=== PATIENT | female | born 1985 | race Caucasian/White ===

== ENCOUNTER 2017-11-07 19:14 | Observation (INO) ==
[2017-11-07 19:58] LABS: Bilirubin,Urine Negative (Negative); Blood,Urine Negative (Negative); Clarity,Urine Clear (Clear); Color,Urine Yellow (Yellow); Glucose,Urine (UA) Normal (Normal); Ketones,Urine Negative (Negative); Leukocyte Esterase,Urine Negative (Negative); Nitrite,Urine Negative (Negative); PH,Urine 7.5 pH Units (5.0-8.0); Protein,Urine Negative (Neg-Trace); Specific Gravity,Urine 1.008 (1.010-1.025); Urobilinogen,Urine Normal (Normal)
[2017-11-07 20:20] LABS: Amphetamine Screen,Urine Negative ng/mL (Cutoff=1000); Barbiturate Screen,Urine Negative ng/mL (Cutoff=200); Benzodiazepines Screen,Urine Negative ng/mL (Cutoff=200); Cannabinoid Screen,Urine Negative ng/mL (Cutoff = 50); Cocaine Screen,Urine Negative ng/mL (Cutoff= 300); Opiate Screen,Urine Negative ng/mL (Cutoff=300); Phencyclidine Screen,Urine Negative ng/mL (Cutoff=25)
--- NOTE | 2017-11-07 21:47 | OB/GYN Progress Note ---
Date of Encounter: 11/07/17 Time of Encounter: 21:46 - Assessment and Plan (1) 31 weeks gestation of Current Visit: Yes Status: Acute (2) Low back pain during in third trimester Current Visit: Yes Status: Acute Negative UA, cervix closed, patient describes back pains shooting down legs similar to sciatica, discussed comfort measures such as belly band, Tylenol. Discharged home with labor and when to return to triage precautions. Patient verbalizes understanding Subjective - Subjective Interval history: 31+1 weeks gestation presents to triage with complaints of lower back and hip pain, pelvic pressure, suprapubic pressure. Patient states pain has been going on for a few days now, increasing in intensity today with sharp vaginal pain. Reports good movement, denies vaginal bleeding or leaking of fluid Antepartum ROS: movement normal, no loss of fluid, no vaginal bleeding, no contractions Objective - Exam FHR: auscultation normal FHR comments: Baseline 130 Auscultation: bilateral: normal Abdomen: Present: soft, gravid Cervical dilation: Closed-Fingertip/long/high Comments: Negative CVA tenderness - Labs Labs: Abnormal lab results Ur Specific [place] 1.008 (1.010-1.025) L 11/07/17 19:45
== END 2017-11-07 22:08 | disposition home or self-care (01) ==
LOC: 1NENULAB
PROVIDERS: ADMIT Advanced Practice Midwife; ATTEND Advanced Practice Midwife

== ENCOUNTER 2017-12-07 17:49 | Observation (INO) ==
[2017-12-07 18:41] LABS: Bilirubin,Urine Negative (Negative); Blood,Urine Negative (Negative); Clarity,Urine Clear (Clear); Color,Urine Yellow (Yellow); Glucose,Urine (UA) Normal (Normal); Ketones,Urine Negative (Negative); Leukocyte Esterase,Urine Trace (Negative); Nitrite,Urine Negative (Negative); Protein,Urine Negative (Neg-Trace); Specific Gravity,Urine 1.011 (1.010-1.025); Urobilinogen,Urine Normal (Normal)
[2017-12-07 18:43] LABS: Bacteria,Urine None Seen per hpf (None-Few); Hyaline Casts,Urine None Seen per lpf (None-Few); RBC,Urine 0-3 per hpf (0-3); Squamous Epithelial Cell,Urine Few per lpf (None-Few); WBC,Urine 0-3 per hpf (0-3)
--- NOTE | 2017-12-07 19:13 | OB/GYN Progress Note ---
Date of Encounter: 12/07/17 Time of Encounter: 19:09 - Assessment and Plan (1) 35 weeks gestation of Current Visit: Yes Status: Acute Normal vaginal exam NST reactive Urine - NSF Discharge home with labor precautions Follow up in the office as scheduled and prn (2) NST (non-stress test) reactive Current Visit: Yes Status: Acute (3) Vaginal yeast infection Current Visit: Yes Status: Acute Discharged home with Rx Yeast adhered to vaginal ryder on SSE - no other abnormalities seen. Subjective - Subjective Principal diagnosis: Something coming out of my vagina after bowel movement Interval history: Ms Sierra is a at 35 weeks and 3 days that presents to the triage with c/o something coming out of her posterior vagina. She states positive movement. She states the protrusion occurred after straining with a bowel movement around 4pm. She denies any previous labors. She denies regular cramping and contractions. She denies headaches, vision changes, epigastric pain, leaking of fluid, and vaginal bleeding. Antepartum ROS: new complaints, movement normal Objective - Vital Signs Vital Signs: Intake and Output 12/07/17 12/07/17 12/07/17 07:59 15:59 23:59 Other: Weight 66 kg Patient Weight 12/07/17 23:59 Weight 66 kg - Exam FHR: auscultation normal, category 1 FHR comments: 140 category I. No contractions per monitor Auscultation: bilateral: normal Abdomen: Present: normal appearance, soft, gravid Uterus: Present: normal. Absent: firm, tenderness Cervical dilation: 1.5 Cervix effacement: 75 station: -1 - Labs Labs: Abnormal lab results Ur Leukocyte Esterase Trace (Negative) H 12/07/17 18:24 Ur Culture Indicated? YES (NO) A 12/07/17 18:24
[2017-12-07 19:58] LABS: Amphetamine Screen,Urine Negative ng/mL (Cutoff=1000); Barbiturate Screen,Urine Negative ng/mL (Cutoff=200); Benzodiazepines Screen,Urine Negative ng/mL (Cutoff=200); Cannabinoid Screen,Urine Negative ng/mL (Cutoff = 50); Cocaine Screen,Urine Negative ng/mL (Cutoff= 300); Opiate Screen,Urine Negative ng/mL (Cutoff=300); Phencyclidine Screen,Urine Negative ng/mL (Cutoff=25)
== END 2017-12-07 19:40 | disposition home or self-care (01) ==
LOC: 1NENULAB
PROVIDERS: ADMIT Advanced Practice Midwife; ATTEND Advanced Practice Midwife

== ENCOUNTER → 2017-12-20 00:33 | Observation (INO) ==
[2017-12-19 23:37] LABS: Amphetamine Screen,Urine Negative ng/mL (Cutoff=1000); Barbiturate Screen,Urine Negative ng/mL (Cutoff=200); Benzodiazepines Screen,Urine Negative ng/mL (Cutoff=200); Cannabinoid Screen,Urine Negative ng/mL (Cutoff = 50); Cocaine Screen,Urine Negative ng/mL (Cutoff= 300); Opiate Screen,Urine Negative ng/mL (Cutoff=300); Phencyclidine Screen,Urine Negative ng/mL (Cutoff=25)
--- NOTE | 2017-12-20 00:20 | OB/GYN Progress Note ---
Date of Encounter: 12/20/17 Time of Encounter: 00:16 - Assessment and Plan (1) 37 weeks gestation of Current Visit: Yes Status: Acute Assessed by nurses and results relayed to CNM Cervical exam no change Vaginosis panel pending Discharge home with labor precautions Will follow up with patient in AM with vaginosis panel results Follow up in office with routine care and PRN. (2) NST (non-stress test) reactive Current Visit: Yes Status: Acute Subjective - Subjective Principal diagnosis: vaginal discharge and irregular ctx Interval history: Assessed for labor by nurses. Antepartum ROS: new complaints, movement normal, contractions Objective - Exam FHR: auscultation normal, category 1 FHR comments: 135 baseline category I tracing Cervical dilation: 2 and posterior per RN exam
[2017-12-20 00:51] LABS: Candida DNA Not Detected (Not Detect); Gardnerella DNA Not Detected (Not Detect); Trichomonas DNA Not Detected (Not Detect)
== END | disposition home or self-care (01) ==
LOC: 1NENULAB
PROVIDERS: ADMIT Advanced Practice Midwife; ATTEND Advanced Practice Midwife

== ENCOUNTER 2018-01-01 10:00 | Inpatient (IN) ==
[2018-01-01] MEDS ORDERED: Ondansetron 4 MG/2 ML VIAL IVP PRN (10:23)
[2018-01-01] MEDS ORDERED: Famotidine 20 MG/2 ML VIAL IVP PRN (10:23)
[2018-01-01] MEDS ORDERED: Metoclopramide 10 MG/2 ML VIAL IVP PRN (10:23)
[2018-01-01] MEDS ORDERED: *HR* Nalbuphine 10 MG/ML AMPUL IVP PRN (10:23)
[2018-01-01] MEDS ORDERED: Naloxone 0.4 MG/ML INJ IVP PRN (10:23)
[2018-01-01] MEDS ORDERED: Ringers Solution, Lactated 1,000 ML IVC SCH (10:30)
[2018-01-01] MEDS ORDERED: Oxytocin 20 units/ LR 1000 mL 20 UNIT/1,000 ML BAG IVC SCH ×2 (10:30→20:07)
[2018-01-01 11:14] LABS: Basophils % 0.4 %; Eosinophils # 0.1 K/mcL (0.0-0.6); Hematocrit 30.9 % (35.3-44.9); Hemoglobin 10.2 g/dL (11.5-15.4); Immature Granulocytes % 1.2 % (0-4); Lymphocytes # 1.8 K/mcL (0.6-4.6); Lymphocytes % 19.3 %; Mean Corpuscular Hemoglobin 33.1 pg (28.0-33.3); Mean Corpuscular Volume 100.3 fL (83.0-100.0); Mean Platelet Volume 10.8 fL (9.4-12.4); Monocytes # 0.8 K/mcL (0.0-1.3); Neutrophils # 6.6 K/mcL (1.6-8.9); Platelet Count 221 K/mcL (140-400); Red Blood Count 3.08 M/mcL (3.82-4.97); Red Cell Distribution Width 13.7 % (11.5-14.5); Segmented Neutrophils % 70.1 %
[2018-01-01] MEDS ORDERED: Loratadine 10 MG TABLET PO ONE (11:23)
[2018-01-01 11:55] LABS: Amphetamine Screen,Urine Negative ng/mL (Cutoff=1000); Barbiturate Screen,Urine Negative ng/mL (Cutoff=200); Benzodiazepines Screen,Urine Negative ng/mL (Cutoff=200); Cannabinoid Screen,Urine Negative ng/mL (Cutoff = 50); Cocaine Screen,Urine Negative ng/mL (Cutoff= 300); Opiate Screen,Urine Negative ng/mL (Cutoff=300); Phencyclidine Screen,Urine Negative ng/mL (Cutoff=25)
[2018-01-01] MEDS ORDERED: Epidural Premix (fent/bupiv) 110 ML EP ONE (13:22)
--- NOTE | 2018-01-01 16:10 | OB/GYN History & Physical ---
Date of Encounter: 01/01/18 Time of Encounter: 16:08 Assessment and Plan (1) 39 weeks gestation of Current visit: Yes Status: Acute (2) Elective induction of labor planned Current visit: Yes Status: Acute Planned pitocin induction. Patient with history of infant and is very anxious and would prefer to be delivered at term History of Present Illness Chief complaint: induciton of labor at term HPI: Ms. Sierra is a 32 year old female G 6 P 3-0-2-2 at 39 0/7 weeks admitted for induction of labor at term with favorable cervix. She denies any regular contractions, leaking fluid, or vaginal bleeding. She reports good movement. Her has been uncomplicated. She does have a history of an infant at 2 months of age. Past Med Surg Social Fam HX - Past Medical History Source: patient Medical history: non-contributory (seasonal allergies) Additional medical history: irregular heart rate with PVC's. seasonal allergies Psychiatric history: anxiety, depression - Past Surgical History Surgical History: other Additional surgical history: D&C in 2017 - Social History Smoking Status: Never smoker Smokeless Tobacco Status: No Alcohol use: none Drug use: none - Family History Mother Name: Keyona Living Status: Still Living Hx Family GI Disorders: Yes (crohns) Obstetrical History - Pregnancies : 6 Para: 3 Term: 3 : 0 Ab's: 2 Livin Medications and Allergies Buspar 7.5 mg PO BID 10/28/17 [History] Tablet 1 tab PO DAILY 10/28/17 [History] Ferrous Sulfate 1 tab PO DAILY 11/07/17 [History] Folic Acid 1 tab PO DAILY 11/07/17 [History] Zyrtec 10 mg PO DAILY 12/07/17 [History] 3 Allergy/AdvReac Type Severity Reaction Status Date / Time terconazole [From Terazol 3] AdvReac See Verified 12/19/17 23:30 Comments venlafaxine [From Effexor] AdvReac Anxiety Verified 11/07/17 19:34 Review of System OB All systems PM: reviewed and no additional remarkable complaints except as stated Exam - Constitutional Constitutional: well developed, well nourished, no acute distress, average body habitus - HEENT HEENT: EOMI - Lungs Respiratory exam: CTAB - Cardiovascular Cardiovascular exam: RRR - Abdomen Abdomen: Present: bowel sounds normal, gravid, non tender - Vulva Vulva: bilateral: normal - Vagina Vagina: Present: normal moisture - Cervix Dilation: 4 Effacement: 80 Station: -3 - Comments Comments: AROM with clear fluid. Continue with EFM. Currently category 1 FHR tracing. Contractions q 2 minutes Results Result Diagrams: 01/01/18 10:24 Abnormal lab results RBC 3.08 M/mcL (3.82-4.97) L 01/01/18 10:24 Hgb 10.2 g/dL (11.5-15.4) L 01/01/18 10:24 Hct 30.9 % (35.3-44.9) L 01/01/18 10:24 MCV 100.3 fL (83.0-100.0) H 01/01/18 10:24 All other labs normal. - VTE Reasons for not Prescribing Prophylaxis: Treatment not Indicated - Low risk for VTE
--- NOTE | 2018-01-01 19:41 | OB/GYN Procedure Note ---
Delivery - Delivery Date: 01/01/18 Provider: Nadege Osborn Intrapartum events: none Delivery induction: AROM, oxytocin Delivery monitor: external FHT, external uterine Anesthesia: none Quantitated Blood Loss: 200 - (s) Infant A Delivery Date: 01/01/18 Delivery Time: 19:22 Presentation: vertex Route of delivery: Gender: Male Viability: Viable Pounds: 6 Ounces: 13 Weight Gram: 3.105 kg at 1 minute: 8 at 5 mins: 9 Shoulder Dystocia: not encountered Placenta: spontaneous - Repair Laceration Description: Perineal - 1st Degree - Complications Delivery complications: none Delivery comments: Called to room with patient complete and +2 station. Under maternal effort she delivered a viable male weighing 6 lbs. 13 oz. and Apgars 8 and 9 at one and 5 minutes respectively do delivered over an intact perineum. Following delivery of the head the infant had no nuchal cord or shoulder dystocia encountered. The 's body was delivered with maternal effort and placed on mom's abdomen. She had a anteriorly the laceration was hemostatic without repair as well as posterior perineal laceration very superficial and hemostatic. Cord was clamped and cut with assistance from the father. Placenta delivered spontaneously, complete, and intact with a three-vessel cord. Mother and recovering in LDR in stable condition - Disposition Mom disposition: stable in LDR [place] disposition: stable in LDR
[2018-01-01] MEDS ORDERED: Oxytocin 20 units/ LR 1000 mL 20 UNIT/1,000 ML BAG IVC ONE (20:07)
[2018-01-01] MEDS: Ibuprofen 600 MG TABLET PO PRN (20:20)
[2018-01-01] MEDS: Acetaminophen 325 MG TABLET PO PRN (23:02)
[2018-01-02] MEDS: Ibuprofen 600 MG TABLET PO PRN ×3 (03:24→22:18)
[2018-01-02] MEDS ORDERED: Ondansetron 4 MG/2 ML VIAL IVP ONE (04:16)
[2018-01-02 04:56] LABS: Basophils # 0.1 K/mcL (0.0-0.2); Basophils % 0.4 %; Eosinophils # 0.1 K/mcL (0.0-0.6); Eosinophils % 0.6 %; Hematocrit 27.6 % (35.3-44.9); Hemoglobin 9.1 g/dL (11.5-15.4); Immature Granulocytes % 0.9 % (0-4); Lymphocytes # 2.5 K/mcL (0.6-4.6); Lymphocytes % 18.1 %; Mean Corpuscular Hemoglobin 34.1 pg (28.0-33.3); Mean Corpuscular Volume 103.4 fL (83.0-100.0); Mean Platelet Volume 10.4 fL (9.4-12.4); Monocytes # 1.2 K/mcL (0.0-1.3); Monocytes % 8.8 %; Neutrophils # 9.6 K/mcL (1.6-8.9); Platelet Count 199 K/mcL (140-400); Red Blood Count 2.67 M/mcL (3.82-4.97); Red Cell Distribution Width 13.6 % (11.5-14.5); Segmented Neutrophils % 71.2 %
[2018-01-02] MEDS: Acetaminophen 325 MG TABLET PO PRN ×2 (06:41→23:40)
[2018-01-02] MEDS: Loratadine 10 MG TABLET PO SCH (08:17)
[2018-01-02] MEDS: Prenatal Vit/FA 1 EACH TABLET PO SCH (08:18)
--- NOTE | 2018-01-02 10:16 | OB/GYN Progress Note ---
Date of Encounter: 01/02/18 Time of Encounter: 10:14 - Assessment and Plan (1) Vaginal delivery Current Visit: Yes Status: Acute Stable PPD#1 Continue current management plan Anticipate discharge tomorrow. Subjective - Subjective Patient reports: appetite normal, voiding normally, pain well controlled, ambulating normally : doing well Objective - Latest Vital Signs Latest vital signs: Vital Signs Temp Pulse Resp BP Pulse Ox 01/02/18 07:50 97.8 F 66 14 109/64 100 01/02/18 06:00 98.1 F 67 16 102/65 98 01/01/18 23:45 98.0 F 64 14 106/58 99 01/01/18 22:45 98.1 F 68 16 112/68 100 01/01/18 21:45 98.1 F 66 16 105/63 99 Intake and Output 01/01/18 01/02/18 01/02/18 23:59 07:59 15:59 Intake Total 800 / 800 Output Total 175 / 175 800 / 800 Balance -175 / -175 0 / 0 Intake: Oral 800 / 800 Output: Urine 175 / 175 800 / 800 Other: Weight 60 kg Patient Weight 01/02/18 23:59 Weight 60 kg - Exam Lungs: bilateral: normal Chest: Normal S1, Normal S2 Extremities: Present: normal Abdomen: Present: normal appearance, soft, gravid Uterus: Present: firm Uterus Position: 2 Fingers Below Umbilicus - Labs Labs: Laboratory Results - last 24 hr 01/01/18 01/01/18 01/02/18 10:23 10:24 04:39 WBC 9.4 13.5 H RBC 3.08 L 2.67 L Hgb 10.2 L 9.1 L Hct 30.9 L 27.6 L MCV 100.3 H 103.4 H MCH 33.1 34.1 H MCHC 33.0 33.0 RDW 13.7 13.6 Plt Count 221 199 MPV 10.8 10.4 Immature Gran % 1.2 0.9 Seg Neutrophils % 70.1 71.2 Lymphocytes % 19.3 18.1 Monocytes % 8.0 8.8 Eosinophils % 1.0 0.6 Basophils % 0.4 0.4 Neutrophils # 6.6 9.6 H Lymphocytes # 1.8 2.5 Monocytes # 0.8 1.2 Eosinophils # 0.1 0.1 Basophils # 0.0 0.1 Urine Opiates Screen Negative Ur Barbiturates Screen Negative Ur Phencyclidine Scrn Negative Ur Amphetamines Screen Negative U Benzodiazepines Scrn Negative Urine Cocaine Screen Negative U Marijuana (THC) Screen Negative Ur Drug Screen Interp See Below
[2018-01-03] MEDS: Ibuprofen 600 MG TABLET PO PRN (05:49)
[2018-01-03] MEDS: Prenatal Vit/FA 1 EACH TABLET PO SCH (07:31)
[2018-01-03] MEDS: Loratadine 10 MG TABLET PO SCH (07:32)
[2018-01-03 07:37] VITALS: BP 116/78
--- NOTE | 2018-01-03 10:31 | Discharge Summary ---
Date of Encounter: 01/03/18 Time of Encounter: 10:29 - Discharge Diagnosis (1) Status post vaginal delivery Priority: Primary Status: Acute Comments: 32 yo on PPD#2 following a of a baby boy at 39w1d. Meeting PP milestones, reports good mood. Reports is going well. H/o of anxiety & depression; aware of s/sx f PP depression. Established with a counselor that she plans to follow up with PP. Declines control at this time. Plan for discharge today. - Discharge Medications Prescriptions: Ibuprofen [Motrin] 600 mg PO Q6HR PRN #30 tablet PRN Reason: Cramping Docusate [Colace] 100 mg PO BID #30 capsule Home Medications: Buspar 7.5 mg PO BID 10/28/17 [History] Tablet 1 tab PO DAILY 10/28/17 [History] Zyrtec 10 mg PO DAILY 12/07/17 [History] Docusate [Colace] 100 mg PO BID #30 capsule 01/03/18 [Rx] Ibuprofen [Motrin] 600 mg PO Q6HR PRN #30 tablet 01/03/18 [Rx] Allergies/Adverse Reactions: 3 Allergy/AdvReac Type Severity Reaction Status Date / Time terconazole [From Terazol 3] AdvReac See Verified 12/19/17 23:30 Comments venlafaxine [From Effexor] AdvReac Anxiety Verified 11/07/17 19:34 Data Procedures and tests throughout hospitalization: Laboratory Tests 01/01/18 01/01/18 01/02/18 10:23 10:24 04:39 WBC 9.4 13.5 H RBC 3.08 L 2.67 L Hgb 10.2 L 9.1 L Hct 30.9 L 27.6 L MCV 100.3 H 103.4 H MCH 33.1 34.1 H MCHC 33.0 33.0 RDW 13.7 13.6 Plt Count 221 199 MPV 10.8 10.4 Immature Gran % 1.2 0.9 Seg Neutrophils % 70.1 71.2 Lymphocytes % 19.3 18.1 Monocytes % 8.0 8.8 Eosinophils % 1.0 0.6 Basophils % 0.4 0.4 Neutrophils # 6.6 9.6 H Lymphocytes # 1.8 2.5 Monocytes # 0.8 1.2 Eosinophils # 0.1 0.1 Basophils # 0.0 0.1 Urine Opiates Screen Negative Ur Barbiturates Screen Negative Ur Phencyclidine Scrn Negative Ur Amphetamines Screen Negative U Benzodiazepines Scrn Negative Urine Cocaine Screen Negative U Marijuana (THC) Screen Negative Ur Drug Screen Interp See Below Date of admission: 01/01/18 10:09 Primary care physician: Kyle Armstrong MD Consults: 01/01/18 20:07 Consult to Construction Equipment [employer] Helper [CONS] Routine Comment: Vaginal delivery, consult needed Discharging clinician: Sophie Hartmann Anticipated date of discharge: 01/03/18 - Patient Status Disposition: Home, Self-Care Condition: Good Functional capacity at discharge: independent ambulation Overall status at discharge: patient is progressing back to baseline - Discharge Instructions Follow Up With: Kyle Armstrong MD [Primary Care Provider] - Nadege Osborn DO [Partnered Physician] - - Diet and Activity Activity: increase activity as tolerated Diet: advance to your usual diet Hospital Course Reason for admission: induction of labor, IUP at term Delivery: Episiotomy: none Laceration: 1st degree Other procedures: none complications: none Discharge diagnosis: IUP at term delivered baby: male Hospital course: - Delivery Date: 01/01/18 Provider: Nadege Osborn Intrapartum events: none Delivery induction: AROM, oxytocin Delivery monitor: external FHT, external uterine Anesthesia: none Quantitated Blood Loss: 200 - (s) A Delivery Date: 01/01/18 Infant Delivery Time: 19:22 Presentation: vertex Route of delivery: Gender: Male Viability: Viable Pounds: 6 Ounces: 13 Weight Gram: 3.105 kg at 1 minute: 8 at 5 mins: 9 Shoulder Dystocia: not encountered Placenta: spontaneous - Repair Laceration Description: Perineal - 1st Degree - Complications Delivery complications: none Delivery comments: Called to room with patient complete and +2 station. Under maternal effort she delivered a viable male weighing 6 lbs. 13 oz. and Apgars 8 and 9 at one and 5 minutes respectively do delivered over an intact perineum. Following delivery of the head the had no nuchal cord or shoulder dystocia encountered. The infant's body was delivered with maternal effort and placed on mom's abdomen. She had a anteriorly the laceration was hemostatic without repair as well as posterior perineal laceration very superficial and hemostatic. Cord was clamped and cut with assistance from the father. Placenta delivered spontaneously, complete, and intact with a three-vessel cord. Mother and infant recovering in LDR in stable condition - Disposition Mom disposition: stable in LDR disposition: stable in LDR Time Attestation: Total time spent providing and/or coordinating discharge services: Exam - Constitutional Vitals: Temp Pulse Resp BP Pulse Ox 98.4 F 66 16 116/78 99 01/03/18 07:35 01/03/18 07:35 01/03/18 07:35 01/03/18 07:35 01/03/18 07:35 General appearance IM: A&O X 3, pleasant, no acute distress - Respiratory Respiratory exam: Present: CTAB - Cardiovascular Cardiovascular exam IM: Present: RRR, +S1, +S2 - GI/Abdominal GI/Abdominal exam IM: normal bowel sounds - Uterine Tone: Firm Uterus Position: 1 Finger Below Umbilicus - Extremities Exam Extremities exam IM: Present: normal inspection. Absent: calf tenderness, pedal edema - Neurological Exam Neurological exam: alert, oriented X3
== END 2018-01-03 10:43 | disposition home or self-care (01) | DRG 560 ==
LOC: 1NENULAB 10:09 → 1NENUOBS 21:51
PROVIDERS: ADMIT Obstetrics & Gynecology; ATTEND Obstetrics & Gynecology